=== PATIENT | male | born 1995 | race Caucasian/White ===

== ENCOUNTER 2024-03-30 16:59 | Emergency (ER) | payer OTHER, SELFPAY ==
[2024-03-30 17:12] VITALS: BP 112/83; PULSE 94; RESP 18; TEMP 36.9; O2SAT 100
--- NOTE | 2024-03-30 17:38 | ED.GENADULT ---
HPI - General Adult General Chief complaint: Wound/Laceration Stated complaint: Insect Bite/Facial Tingling History of Present Illness HPI narrative: patient is a 28-year-old male, presents to [facility] with multiple tick bite that he sustained on of last [place]. He states that he found at least 100 see text imbedded in the skin surface. He is able to remove them all however over the past weekend, he began feeling run down, has had a headache and felt jittery. He denies associated fevers or chills. He has no skin surfaces that are tender to palpation or signs of infection. He has no joint pain, he denies any additional associated symptoms or modifying factors. His tetanus vaccination is up-to-date. Related Data Home Medications Medication Instructions Recorded Confirmed venlafaxine 75 mg capsule,extended mg PO 03/30/24 release 24 hr Allergies Allergy/AdvReac Type Severity Reaction Status Date / Time No Known Allergies Allergy Unverified 03/30/24 17:08 Review of Systems Integumentary/Breasts: Comments: Refer to HPI Exam Const: General: cooperative and healthy appearing Nutritional Appearance: average body habitus Orientation/consciousness: oriented to person Limitations: no limitations HENMT: Head: normal to inspection, No palpable skull fracture present and normocephalic Ears: hearing grossly normal bilaterally, external ears normal and TM's normal bilaterally Face/Nose/Sinus: Normal external nose present and Normal nares present Mouth: Yes Normal oral and palatal mucosa present and Yes lip normal Throat: posterior oropharynx normal and tonsils normal Eyes: General: appearance normal, both eyes and all related structures Conjunctivae: conjunctivae normal Neck: Neck: normal visual inspection, full ROM, no lymphadenopathy, no meningeal signs and trachea midline Chest: Chest palpation & inspection: normal inspection of the chest Resp: Effort & Inspection: normal respiratory effort Auscultation: clear to auscultation bilaterally Percussion: percussion normal Cardio: Palpation: normal PMI Rate: regular rate Rhythm: regular rhythm Heart sounds: S1 normal heart sound present and S2 normal heart sound present Peripheral pulses: Peripheral pulses 2+ throughout Back/Spine/Pelvis: Back: no CVA tenderness Skin: Other: patient has several punctate papules over the lower extremities at the ankles, diffusely along his waist and up his back, consistent with tick bites. There are no bull's-eye rash eruptions, no lymphangitis, no pustules or vesicles appreciated. Neuro: General: oriented to person, oriented to place, oriented to time and patient oriented x3 Cranial nerves: Yes CN's II-XII intact bilaterally Cognition (Neuro): normal cognition Speech: normal speech Gait exam (Neuro): Normal gait present Course Course Emergency Course: Plan to treat empirically for Lyme exposure with multiple seed tics reported, doxycycline for 21 days, prednisone short course, follow-up with PCP without fail in 2-3 days if symptoms are not improving. Patient is agreeable with plan. Level of Care: Express Care Visit ([id number]) Vital Signs Vital signs: Vital Signs Temperature 36.9 C 03/30/24 17:12 Pulse Rate 94 03/30/24 17:12 Respiratory Rate 18 03/30/24 17:12 Blood Pressure 112/83 03/30/24 17:12 Pulse Oximetry 100 03/30/24 17:12 Oxygen Delivery Room Air 03/30/24 17:12 Temperature 36.9 C 03/30/24 17:12 Pulse Rate 94 03/30/24 17:12 Respiratory Rate 18 03/30/24 17:12 Blood Pressure 112/83 03/30/24 17:12 Pulse Oximetry 100 03/30/24 17:12 Oxygen Delivery Room Air 03/30/24 17:12 Medical Decision Making MDM Narrative Medical decision making narrative: Doxycycline and prednisone Differential Diagnosis Differential Diagnosis: tick bite, anaphylactic reaction, allergic reaction localized, tick-borne illnes
== END 2024-03-30 17:47 | disposition home or self-care (01) ==
PROVIDERS: Emergency Provider Nurse Practitioner Family
DX: S90.562A Insect bite (nonvenomous), left ankle, initial encounter (principal); S90.561A Insect bite (nonvenomous), right ankle, initial encounter; S30.861A Insect bite (nonvenomous) of abdominal wall, initial encounter; S20.469A Insect bite (nonvenomous) of unspecified back wall of thorax, initial encounter; W57.XXXA Bitten or stung by nonvenomous insect and other nonvenomous arthropods, initial encounter
CPT/HCPCS: 99203; G0463